=== PATIENT | male | born 1985 | race Caucasian/White ===

== ENCOUNTER 2022-07-21 08:05 | Emergency (ER) | payer BC, SELFPAY ==
--- NOTE | ~2022-07-21 | XR_ITS ---
EXAMINATION: XR knee RT min 4V DATE: 07/21/2022 08:56 INDICATION: Right knee injury and pain. TECHNIQUE: 4 views of right knee were obtained. COMPARISON: None. FINDINGS: Bone alignment is normal. No fracture. There is an osteochondroma at the posterolateral asp ect of tibial metaphysis. There is mild osteoarthritis of lateral compartment. No knee joint effusion . IMPRESSION: 1. Mild right knee osteoarthritis. 2. Osteochondroma at the posterolateral aspect of tibial metaphysis. Reviewed, dictated and finalized at location A.
--- NOTE | 2022-07-21 08:15 | ED.LOWEXIN ---
HPI - Extremity Injury (Lower) General Chief Complaint: Extremity Injury, Lower Stated Complaint: rt knee injury Time Seen by Provider: 07/21/22 08:28 Source: patient, RN notes reviewed and old records reviewed Mode of arrival: ambulatory Limitations: no limitations History of Present Illness HPI Narrative: 37 year old male presents to express care with complaints of pain after playing hockey last night ran into another player experienced a twisting motion right knee. Patient reports pain with bending, moving knee side to side, especially inversion of right knee, and also with flexing knee, pain along medial distal knee cap area, Patient has not taken any OTC medications for his discomfort. Pain reported to increase with weight bearing and going up steps, wearing compression splint to his knee. MD complaint: knee injury Onset (ago): day(s) (last night) Type of Injury: other (twisting) Severity scale (1-10): 6 Treatments prior to arrival: splint (compression sleeve to knee) Related Data Home Medications Medication Instructions Recorded Confirmed No Home Medications 07/21/22 07/21/22 Allergies Allergy/AdvReac Type Severity Reaction Status Date / Time No Known Allergies Allergy Verified 07/21/22 08:15 Review of Systems Review of Systems: CONSTITUTIONAL: Denies fever, chills, or sweats. EYES: Denies visual changes, redness, or discharge. ENT: Denies rhinorrhea, congestion, sore throat, or otalgia. CARDIOVASCULAR: Denies chest pain, palpitations, or edema. RESPIRATORY: Denies cough or dyspnea. GASTROINTESTINAL: Denies abdominal pain, nausea, vomiting, or diarrhea. GENITOURINARY: Denies dysuria or hematuria. SKIN: Denies rash or itching. MUSCULOSKELETAL: Denies back pain,right knee joint pain, or myalgia. NEUROLOGIC: Denies headache, numbness, or weakness. PSYCHIATRIC: Denies anxiety or depression. All systems reviewed & are unremarkable except as noted in HPI and below PMFSH Surgical History Surgical History H/O vasectomy History of removal of nevus from back benign Family History Family History Mother Patient's mother is in good health Father Patient's father is in good health Social History Social History Smoking status: Never smoker Alcohol intake: never Comments At time of signature, agree with nursing past medical, surgical, social and family history. There is no relevant family history pertinent to the presenting complaint Exam Narrative: GENERAL: Well-appearing, well-nourished, and in no acute distress. HEAD: Normocephalic, atraumatic. EYES: PERRLA and EOMI. ENT: Nares clear, no rhinorrhea or epistaxis. Mucous membranes moist.TM's normal throat pink with no redness or swelling NECK: Supple.no lymphadenopathy CHEST: Clear to auscultation. No respiratory distress.SAO2 100% on room air HEART: Regular rate and rhythm. No murmur heard. Normal peripheral pulses. ABDOMEN: Soft, nontender, nondistended, normal active bowel sounds. EXTREMITIES: Normal range of motion. No edema. Pain to distal medial region of patella of right knee, crepitus felt with bending and extension of knee, strong pulse right leg and foot, no tingling or numbness. Pain increase with weight bearing and with stairs SKIN: Warm, dry, no rash. NEURO: No focal deficits. Alert and oriented x3. Course Course Emergency Course: Patient is aware of diagnosis, understands and agrees to treatment plan.? Anticipatory guidance given.? Patient agrees to follow-up as directed and is aware of reasons to seek care at the emergency department. Portions of this record may have been created with voice recognition software Level of Care: Express Care Visit Vital Signs Vital signs: Vital Signs Temperature 36.2 C L 07/21/22 08:20 Pulse Rate 53 L 07/21/22 08:20 Respiratory Rate 1
[2022-07-21 08:20] VITALS: BP 112/66; PULSE 53; RESP 16; TEMP 36.2; O2SAT 100
== END 2022-07-21 09:29 | disposition home or self-care (01) ==
PROVIDERS: Emergency Provider Registered Nurse
DX: S86.811A Strain of other muscle(s) and tendon(s) at lower leg level, right leg, initial encounter (principal); W51.XXXA Accidental striking against or bumped into by another person, initial encounter; Y93.22 Activity, ice hockey
CPT/HCPCS: 73564; 99203; G0463

== ENCOUNTER → 2022-08-01 13:27 | Outpatient (CLI) | payer BC, SELFPAY ==
--- NOTE | ~2022-08-01 | MR_ITS ---
IMPRESSION: 1. Marrow edema suspicious for bone contusions at the medial femoral condyle an d along the tibial side of the proximal tibiofibular articulation. No fracture and normal menisci, cartilage and stabilizing ligaments. 2. Incidental pedunculated proximal tibial osteochondroma. EXAMINATION: MR knee RT wo con DATE: 08/01/2022 14:03 INDICATION: Right knee internal derangement presenting with anterior knee pain 2 weeks post injury TECHNIQUE: Magnetic resonance imaging (MRI) of the right knee was performed without intravenous contr ast. Sequences included coronal PD-weighted FSE, coronal PD-weighted FS FSE, sagittal T2-weighted FS E, sagittal PD-weighted FS FSE and axial PD weighted fat saturated FSE. COMPARISON: Right knee radiographs dated 07/21/2022 FINDINGS: Medial compartment: Medial meniscus is normal. Articular cartilage is normal. Lateral compartment: Lateral meniscus is normal. Articular cartilage is normal. Patellofemoral compartment: Articular cartilage is normal. Ligaments and tendons: Anterior and posterior cruciate ligaments are normal. The medial collateral ligament and fibular braden ateral ligament complex are normal. The extensor mechanism is normal. The visualized medial and later al hamstring tendons as well as the iliotibial band are normal. Fluid: Physiologic amount of fluid in the joint space. No loose osteochondral bodies identified. Osseous/other: Focal bone marrow edema along the anterior medial femoral condyle near the junction of the trochlear, weightbearing and nonarticular surface. No evident fracture line given history of trauma this most l ikely represents a bone contusion. Additional more subtle marrow edema also suggestive of bone contus ion at the tibial side of the proximal tibiofibular articulation. No fracture or pathologic marrow re placing process. Incidental pedunculated osteochondroma with cortical and medullary continuity cierasin g from the posterolateral metaphyseal region of the proximal tibia. IMPRESSION: 1. Marrow edema suspicious for bone contusions at the medial femoral condyle and along the tibial kadi e of the proximal tibiofibular articulation. No fracture and normal menisci, cartilage and stabilizin g ligaments. 2. Incidental pedunculated proximal tibial osteochondroma. Reviewed, dictated and finalized at location B.
== END ==
PROVIDERS: PCP Orthopaedic Surgery; Visit Provider Orthopaedic Surgery
DX: S89.91XA Unspecified injury of right lower leg, initial encounter (principal); M79.89 Other specified soft tissue disorders; D16.9 Benign neoplasm of bone and articular cartilage, unspecified
CPT/HCPCS: 73721